=== PATIENT | female | born 1975 | race Caucasian/White ===

== ENCOUNTER 2024-08-08 08:33 | Outpatient (CLI) | payer OTHER, SELFPAY ==
--- NOTE | 2024-08-08 10:15 | W.ANESCHARGE ---
Anesthesia Charges Start Date/Time Anesthesia Start Date: 08/08/24 Anesthesia Start Time: 09:40 Stop Date/Time Anesthesia Stop Date: 08/08/24 Anesthesia Stop Time: 10:11
--- NOTE | 2024-08-08 11:06 | W.ANESCHARGE ---
Anesthesia Charges Start Date/Time Anesthesia Start Date: 08/08/24 Anesthesia Start Time: 09:40 Stop Date/Time Anesthesia Stop Date: 08/08/24 Anesthesia Stop Time: 10:11
== END 2024-08-08 08:34 | disposition home or self-care (01) ==
LOC: OP CLINIC 08:39
PROVIDERS: PCP Student in an Organized Health Care Education/Training Program; Visit Provider Surgery
DX: Z12.11 Encounter for screening for malignant neoplasm of colon (principal); Z86.010 Personal history of colon polyps; Z80.0 Family history of malignant neoplasm of digestive organs; Z83.719 Family history of colon polyps, unspecified
CPT/HCPCS: 00811; 00812; 45378; J2704